=== PATIENT | female | born 1970 | race African-American/Black ===

== ENCOUNTER 2023-11-08 15:14 | Emergency (ER) | payer MEDICAID ==
[~2023-11-08] VITALS: Ht 165.1 cm; Wt 79.0 kg
[2023-11-08 15:17] VITALS: O2SAT 100
[2023-11-08] MEDS ORDERED: ALUM1GRA MC (17:05)
[2023-11-08] MEDS ORDERED: TOLN108P2 TP (17:05)
[2023-11-08 17:26] VITALS: BP 150/85; PULSE 79; RESP 16; TEMP 98.5
== END 2023-11-08 17:32 | disposition home or self-care (01) ==
LOC: ER 15:14
DX: B35.3 Tinea pedis (principal); E78.00 Pure hypercholesterolemia, unspecified; Z98.890 Other specified postprocedural states
CPT/HCPCS: 99282